=== PATIENT | male | born 1990 | race Caucasian/White ===

== ENCOUNTER 2018-03-05 15:34 | Emergency (ER) | payer OTHER ==
[~2018-03-05] VITALS: Ht 177.8 cm; Wt 136.1 kg
[~2018-03-05 15:34] MED LIST: IBU-8800 MG PO; MOTRIN800 MG PO
[2018-03-05] MEDS ORDERED: ZESTORETIC 20-1 EACH PO (15:48)
[2018-03-05] MEDS ORDERED: CLARITIN10 MG PO (16:05)
[2018-03-05] MEDS ORDERED: PEPCID20 MG PO (16:05)
[2018-03-05] MEDS ORDERED: EPIPEN 2-P0.3 MG/0.3 IJ (16:05)
[2018-03-05] MEDS ORDERED: MEDROL DOSEPAK4 MG PO (16:05)
[2018-03-05 16:45] VITALS: BP 145/84
[2018-03-06] MEDS ORDERED: HYDR25T PO (14:12)
== END 2018-03-05 16:46 | disposition home or self-care (01) ==
LOC: ED 15:34
DX: R21 Rash and other nonspecific skin eruption (principal); T78.2XXA Anaphylactic shock, unspecified, initial encounter; I10 Essential (primary) hypertension; Z91.030 Bee allergy status; Z79.899 Other long term (current) drug therapy; Y92.9 Unspecified place or not applicable

== ENCOUNTER 2018-03-06 03:21 | Inpatient (IN) | payer OTHER ==
[~2018-03-06] VITALS: Ht 177.8 cm; Wt 156.1 kg
[~2018-03-06 03:21] MED LIST changes: +CLARITIN10 MG PO; +EPIPEN 2-P0.3 MG/0.3 IJ; +MEDROL DOSEPAK4 MG PO; +PEPCID20 MG PO; +ZESTORETIC 20-1 EACH PO
[2018-03-06 03:23] VITALS: BP 168/98
[2018-03-06 03:43] LABS: HEMATOCRIT 43.8 % (42.0-52.0); HEMOGLOBIN 14.5 g/dl (14.0-18.0); MEAN CELL VOLUME 84.1 fl (80.0-94.0); MEAN CORPUSCULAR HGB 27.8 pg (27.0-31.0); MEAN CORPUSCULAR HGB CONC 33.1 g/dl (33.0-37.0); MEAN PLATELET VOLUME 11.4 fl (9.6-12.3); PLATELET COUNT AUTOMATED 253 10*3/uL (130-400); RED BLOOD COUNT 5.21 10*6/uL (4.50-5.90); RED CELL DISTRI WIDTH 13.2 % (0-14.5); WHITE BLOOD COUNT 14.2 10*3/uL (4.8-10.8)
[2018-03-06 03:54] LABS: ACT PARTIAL THROMBO TIME 23.8 SECONDS (20.8-31.5)
[2018-03-06 03:59] LABS: ALBUMIN 3.7 gm/dl (3.1-4.5); ALKALINE PHOSPHATASE 59 U/L (45-117); BUN 8 mg/dl (7-24); CHLORIDE 112 mmol/L (98-107); CREATININE 1.17 mg/dL (0.70-1.30); SGOT/AST 27 IU/L (3-35); SGPT/ALT 38 U/L (12-78); SODIUM 143 mmol/L (136-145); TOTAL PROTEIN 7.7 gm/dL (6.4-8.2)
[2018-03-06 04:02] LABS: PLATELET SUFFICIENCY NORMAL (NORMAL); TOTAL CELLS COUNTED 100 #CELLS
[2018-03-06 04:04] LABS: POTASSIUM 2.3 mmol/L (3.5-5.1)
[2018-03-06 04:30] VITALS: BP 146/84
[2018-03-06 05:00] VITALS: BP 144/73
[2018-03-06 05:04] VITALS: BP 144/73
[2018-03-06 08:00] VITALS: BP 160/90
[2018-03-06 12:00] VITALS: BP 157/88
[2018-03-06 13:02] LABS: BUN 9 mg/dl (7-24); CHLORIDE 111 mmol/L (98-107); CREATININE 0.94 mg/dL (0.70-1.30); SODIUM 143 mmol/L (136-145)
[2018-03-06 13:07] LABS: POTASSIUM 4.3 mmol/L (3.5-5.1)
[2018-03-06] MEDS ORDERED: HYDR25T PO (14:12)
== END 2018-03-06 15:06 | disposition home or self-care (01) | DRG 607 ==
LOC: ED 03:21 → ICCU 04:10 → EDHOLD 04:10 → ICCU 04:25 → 4E 12:27
PROVIDERS: Student in an Organized Health Care Education/Training Program
DX: R21 Rash and other nonspecific skin eruption (principal); E87.6 Hypokalemia; R73.9 Hyperglycemia, unspecified; T38.0X5A Adverse effect of glucocorticoids and synthetic analogues, initial encounter; T46.4X5A Adverse effect of angiotensin-converting-enzyme inhibitors, initial encounter; I10 Essential (primary) hypertension; Z72.89 Other problems related to lifestyle; Z82.49 Family history of ischemic heart disease and other diseases of the circulatory system; Z83.3 Family history of diabetes mellitus; Z84.89 Family history of other specified conditions; Z83.2 Family history of diseases of the blood and blood-forming organs and certain disorders involving the immune mechanism; Z79.899 Other long term (current) drug therapy; Z91.030 Bee allergy status; Y92.89 Other specified places as the place of occurrence of the external cause

== ENCOUNTER 2022-07-01 10:11 | Emergency (ER) | payer OTHER ==
[~2022-07-01] VITALS: Ht 177.8 cm; Wt 136.1 kg
[~2022-07-01 10:11] MED LIST changes: +AMLODIPINE BESY10 MG PO; +CEPHALEXIN500 M1 PO; +HYDR25T PO
[2022-07-01 10:28] VITALS: BP 172/96
== END 2022-07-01 12:13 | disposition home or self-care (01) ==
LOC: ED 10:11
DX: S91.332A Puncture wound without foreign body, left foot, initial encounter (principal); Z91.030 Bee allergy status; Z79.899 Other long term (current) drug therapy; W22.8XXA Striking against or struck by other objects, initial encounter; Y93.89 Activity, other specified; Y92.89 Other specified places as the place of occurrence of the external cause; Y99.8 Other external cause status

== ENCOUNTER 2022-12-21 07:11 | Emergency (ER) | payer OTHER ==
[~2022-12-21] VITALS: Ht 177.8 cm; Wt 136.1 kg
[2022-12-21 07:17] VITALS: BP 135/71
[2022-12-21] MEDS ORDERED: VIBRA-TAB100 MG PO (07:39)
== END 2022-12-21 08:00 | disposition home or self-care (01) ==
LOC: ED 07:11
DX: J01.00 Acute maxillary sinusitis, unspecified (principal); I10 Essential (primary) hypertension; G43.909 Migraine, unspecified, not intractable, without status migrainosus; Z91.030 Bee allergy status

== ENCOUNTER 2024-04-05 11:26 | Emergency (ER) | payer OTHER ==
[~2024-04-05] VITALS: Ht 177.8 cm; Wt 131.5 kg
[~2024-04-05 11:26] MED LIST changes: +VIBRA-TAB100 MG PO
[2024-04-05 11:35] VITALS: BP 124/78
[2024-04-05] MEDS ORDERED: Ketorolac Tromethamine 30 MG/ML VIAL IM ONE (11:55)
[2024-04-05] MEDS ORDERED: LISINOPRIL40 MG PO (12:07)
== END 2024-04-05 12:52 | disposition home or self-care (01) ==
LOC: ED 11:26
DX: S46.911A Strain of unspecified muscle, fascia and tendon at shoulder and upper arm level, right arm, initial encounter (principal); F90.9 Attention-deficit hyperactivity disorder, unspecified type; I10 Essential (primary) hypertension; G43.909 Migraine, unspecified, not intractable, without status migrainosus; Z91.030 Bee allergy status; X50.0XXA Overexertion from strenuous movement or load, initial encounter; Y93.89 Activity, other specified; Y92.89 Other specified places as the place of occurrence of the external cause; Y99.0 Civilian activity done for income or pay

== ENCOUNTER 2024-10-28 14:02 | Emergency (ER) | payer OTHER ==
[~2024-10-28] VITALS: Ht 175.2 cm; Wt 131.5 kg
[~2024-10-28 14:02] MED LIST changes: +LISINOPRIL40 MG PO
[2024-10-28 14:43] VITALS: BP 130/85
[2024-10-28] MEDS ORDERED: Enoxaparin Sodium 120 MG/0.8 ML SYR SC ONE (15:20)
== END 2024-10-28 15:47 | disposition home or self-care (01) ==
LOC: ED 14:02
DX: M79.604 Pain in right leg (principal); I10 Essential (primary) hypertension; G43.909 Migraine, unspecified, not intractable, without status migrainosus; F90.9 Attention-deficit hyperactivity disorder, unspecified type; Z91.030 Bee allergy status